=== PATIENT | female | born 2000 | race Caucasian/White ===

== ENCOUNTER → 2024-12-24 | Outpatient (REF) | payer OTHER ==
[~2024-12-24] MED LIST: IOPAMIDOL 370 MG/ML 100 ML INFUS..BTL INJ ONE
== END ==
LOC: DX 12:27
PROVIDERS: ATTEND Obstetrics & Gynecology
DX: Z78.9 Other specified health status (principal); N97.9 Female infertility, unspecified
CPT/HCPCS: 58340; 74740; 81025; Q9967